=== PATIENT | female | born 1960 | race Hispanic/Latino ===

== ENCOUNTER 2020-04-14 15:19 | Emergency (ER) | payer BC, OTHER ==
[2020-04-14] MEDS ORDERED: ACETAMINOPHEN 325 MG TAB ONE (15:28)
== END 2020-04-14 17:28 | disposition home or self-care (01) ==
LOC: EDH 15:19
DX: M62.830 Muscle spasm of back (principal); M54.2 Cervicalgia; Z90.710 Acquired absence of both cervix and uterus; Z98.890 Other specified postprocedural states; V49.49XA Driver injured in collision with other motor vehicles in traffic accident, initial encounter; Y93.89 Activity, other specified; Y92.89 Other specified places as the place of occurrence of the external cause; Y99.8 Other external cause status
CPT/HCPCS: 72040